=== PATIENT | male | born 1945 | race Caucasian/White ===

== ENCOUNTER 2017-02-12 11:22 | Inpatient (IN) | payer OTHER, MEDICARE ==
[~2017-02-12] VITALS: Ht 182.9 cm; Wt 68.2 kg
[2017-02-12 13:06] LABS: HEMATOCRIT 35.9 % (38.0-50.0); MCH 29.6 PG (29.0-34.0); MCHC 32.9 G/DL (30.0-36.0); MEAN PLAT.VOLUME 10.3 uM^3 (9.0-12.4); PLATELET COUNT 216 K/uL (156-360); RBC DIS.WIDTH-CV 12.7 % (11.8-14.6); RBC DIS.WIDTH-SD 42.3 % (39-53); RED BLOOD COUNT 3.99 M/uL (4.00-5.50); WHITE BLOOD COUNT 7.4 K/uL (4.1-10.2)
[2017-02-12 13:15] LABS: CHLORIDE 105 mEq/L (99-109); POTASSIUM 4.3 mEq/L (3.7-5.4); SODIUM 140 mEq/L (136-147)
[2017-02-12 13:17] LABS: GLUCOSE 113 mg/dL (70-99)
[2017-02-12 13:18] LABS: ANION GAP 15 MEQ/L (2-14)
[2017-02-12 13:21] LABS: GFR ESTIMATE (CALCULATED) 12 mL/min/; UREA NITROGEN (BUN) 60 mg/dL (9-23)
[2017-02-12 13:27] LABS: TROP-I INTERPRETATION NEGATIVE; TROPONIN-I 0.05 ng/mL (0.0-0.30)
[2017-02-12] MEDS ORDERED: CALCITRIOL0.25 MCG PO (14:24)
[2017-02-12] MEDS ORDERED: LABETALOL HCL200 MG PO ×2 (14:25)
[2017-02-12] MEDS ORDERED: SERTRALINE HCL100 MG PO (14:25)
[2017-02-12] MEDS ORDERED: METHYLDOPA250 MG PO (14:25)
[2017-02-12] MEDS ORDERED: NIFEDIPINE ER60 MG PO (14:26)
[2017-02-12] MEDS ORDERED: VITAMIN D32000 UNI1 PO (14:26)
[2017-02-12] MEDS ORDERED: ALLOPURINOL300 MG PO (14:27)
[2017-02-12] MEDS ORDERED: MULTI-VITAMIN1 EAC4 PO (14:27)
[2017-02-12] MEDS ORDERED: TYLENOL REGULA325 MG PO (14:27)
[2017-02-12] MEDS ORDERED: CLARITIN,ALAVAR10 MG PO (14:45)
[2017-02-12 20:05] VITALS: BP 200/94
[2017-02-12 20:25] VITALS: BP 220/94
[2017-02-12 21:26] VITALS: BP 192/78
[2017-02-12 23:16] VITALS: BP 200/92
[2017-02-13] VITALS (9 sets, daily range): BP systolic 174–224; BP diastolic 80–110
[2017-02-13 06:39] LABS: BASOPHIL COUNT 0.1 K/uL (0-0.1); EOSINOPHIL COUNT 0.6 K/uL (0-0.3); HEMATOCRIT 34.1 % (38.0-50.0); IMMATURE GRANULOCYTE (%) 0.2 % (0.0-0.7); INSTRUMENT ABS NEUTROPHIL CT 3.8 K/uL; LYMPHOCYTE COUNT 1.6 K/uL (1.0-2.8); MCH 29.6 PG (29.0-34.0); MCHC 32.6 G/DL (30.0-36.0); MCV 90.9 FL (86-99); MEAN PLAT.VOLUME 10.5 uM^3 (9.0-12.4); MONOCYTE (%) 8.1 % (3-12); MONOCYTE COUNT 0.5 K/uL (0-0.8); NEUTROPHIL (%) 57.6 % (45-76); NEUTROPHIL COUNT 3.8 K/uL (1.8-6.4); PLATELET COUNT 199 K/uL (156-360); RBC DIS.WIDTH-CV 12.7 % (11.8-14.6); RBC DIS.WIDTH-SD 42.4 % (39-53); RED BLOOD COUNT 3.75 M/uL (4.00-5.50); WHITE BLOOD COUNT 6.6 K/uL (4.1-10.2)
[2017-02-13 07:06] LABS: ALKALINE PHOSPHATASE 47 IU/L (3-129); ANION GAP 12 MEQ/L (2-14); CHLORIDE 107 MEQ/L (99-109); DIRECT BILIRUBIN 0.1 mg/dL (0.0-0.3); GFR ESTIMATE (CALCULATED) 13 mL/min/; GLUCOSE 104 mg/dL (70-99); POTASSIUM 3.7 MEQ/L (3.7-5.4); SAMPLE HEMOLYSIS CHECK 0; SAMPLE ICTERIC CHECK 0; SAMPLE LIPEMIA CHECK 0; SODIUM 143 MEQ/L (136-147); TOTAL BILIRUBIN 0.6 MG/DL (0.0-1.0); TROP-I INTERPRETATION NEGATIVE; TROPONIN-I 0.05 ng/mL (0.0-0.30); UREA NITROGEN (BUN) 58 mg/dL (9-23)
[2017-02-13 07:08] LABS: ALKALINE PHOSPHATASE 45 IU/L (3-129); ANION GAP 11 MEQ/L (2-14); CHLORIDE 107 MEQ/L (99-109); GFR ESTIMATE (CALCULATED) 12 mL/min/; GLUCOSE 99 mg/dL (70-99); POTASSIUM 3.7 MEQ/L (3.7-5.4); SAMPLE HEMOLYSIS CHECK 0; SAMPLE ICTERIC CHECK 0; SAMPLE LIPEMIA CHECK 0; SODIUM 142 MEQ/L (136-147); TOTAL BILIRUBIN 0.6 MG/DL (0.0-1.0); UREA NITROGEN (BUN) 56 mg/dL (9-23)
[2017-02-13 07:27] LABS: D-DIMER ELISA 1.58 mg/L FEU (< 0.57)
[2017-02-14 04:44] VITALS: BP 154/72
[2017-02-14 06:58] LABS: EOSINOPHIL (%) 8.1 % (0-5); EOSINOPHIL COUNT 0.6 K/uL (0-0.3); HEMATOCRIT 36.2 % (38.0-50.0); IMMATURE GRANULOCYTE (%) 0.3 % (0.0-0.7); INSTRUMENT ABS NEUTROPHIL CT 4.1 K/uL; LYMPHOCYTE COUNT 1.6 K/uL (1.0-2.8); MCH 29.5 PG (29.0-34.0); MCHC 32.6 G/DL (30.0-36.0); MCV 90.5 FL (86-99); MEAN PLAT.VOLUME 10.6 uM^3 (9.0-12.4); MONOCYTE (%) 7.8 % (3-12); MONOCYTE COUNT 0.5 K/uL (0-0.8); NEUTROPHIL (%) 59.4 % (45-76); NEUTROPHIL COUNT 4.1 K/uL (1.8-6.4); PLATELET COUNT 211 K/uL (156-360); RBC DIS.WIDTH-CV 12.8 % (11.8-14.6); RBC DIS.WIDTH-SD 42.6 % (39-53); WHITE BLOOD COUNT 6.9 K/uL (4.1-10.2)
[2017-02-14 07:25] LABS: ALKALINE PHOSPHATASE 47 IU/L (3-129); ANION GAP 13 MEQ/L (2-14); CHLORIDE 105 MEQ/L (99-109); GFR ESTIMATE (CALCULATED) 11 mL/min/; GLUCOSE 101 mg/dL (70-99); POTASSIUM 3.6 MEQ/L (3.7-5.4); SAMPLE HEMOLYSIS CHECK 0; SAMPLE ICTERIC CHECK 0; SAMPLE LIPEMIA CHECK 0; SODIUM 140 MEQ/L (136-147); TOTAL BILIRUBIN 0.5 MG/DL (0.0-1.0); UREA NITROGEN (BUN) 61 mg/dL (9-23)
[2017-02-14 12:28] VITALS: BP 155/71
[2017-02-14 13:02] LABS: ANTI-HEPATITIS A VIRUS (IGM) Nonreactive; HAV INDEX 0.12
[2017-02-14 13:04] LABS: ANTI-HEPATITIS B CORE (IGM) Nonreactive; HBC IgM INDEX 0.06
[2017-02-14 19:17] VITALS: BP 162/70
[2017-02-14 23:59] VITALS: BP 142/66
[2017-02-15] VITALS (7 sets, daily range): BP systolic 127–178; BP diastolic 60–82
[2017-02-15 05:30] LABS: EOSINOPHIL (%) 9.7 % (0-5); EOSINOPHIL COUNT 0.7 K/uL (0-0.3); HEMATOCRIT 32.4 % (38.0-50.0); IMMATURE GRANULOCYTE (%) 0.3 % (0.0-0.7); LYMPHOCYTE COUNT 1.7 K/uL (1.0-2.8); MCH 29.4 PG (29.0-34.0); MCHC 32.7 G/DL (30.0-36.0); MEAN PLAT.VOLUME 10.2 uM^3 (9.0-12.4); MONOCYTE COUNT 0.6 K/uL (0-0.8); NEUTROPHIL (%) 56.8 % (45-76); PLATELET COUNT 192 K/uL (156-360); RBC DIS.WIDTH-CV 12.9 % (11.8-14.6); RBC DIS.WIDTH-SD 42.6 % (39-53)
[2017-02-15 06:01] LABS: ALKALINE PHOSPHATASE 40 IU/L (3-129); ANION GAP 11 MEQ/L (2-14); CHLORIDE 104 MEQ/L (99-109); GFR ESTIMATE (CALCULATED) 11 mL/min/; GLUCOSE 107 mg/dL (70-99); POTASSIUM 3.5 MEQ/L (3.7-5.4); SAMPLE HEMOLYSIS CHECK 0; SAMPLE ICTERIC CHECK 0; SAMPLE LIPEMIA CHECK 0; SODIUM 135 MEQ/L (136-147); TOTAL BILIRUBIN 0.4 MG/DL (0.0-1.0); UREA NITROGEN (BUN) 64 mg/dL (9-23)
[2017-02-15 13:14] LABS: AHBS INDEX 0.35; HEPATITIS B SURFACE ANTIBODY Nonreactive
[2017-02-16 04:48] VITALS: BP 146/67
[2017-02-16 10:06] LABS: BASOPHIL COUNT 0.1 K/uL (0-0.1); EOSINOPHIL (%) 6.4 % (0-5); EOSINOPHIL COUNT 0.5 K/uL (0-0.3); HEMATOCRIT 31.8 % (38.0-50.0); IMMATURE GRANULOCYTE (%) 0.3 % (0.0-0.7); INSTRUMENT ABS NEUTROPHIL CT 4.6 K/uL; LYMPHOCYTE COUNT 1.5 K/uL (1.0-2.8); MCH 29.4 PG (29.0-34.0); MCHC 32.4 G/DL (30.0-36.0); MCV 90.9 FL (86-99); MEAN PLAT.VOLUME 10.5 uM^3 (9.0-12.4); MONOCYTE (%) 10.7 % (3-12); MONOCYTE COUNT 0.8 K/uL (0-0.8); NEUTROPHIL (%) 61.8 % (45-76); NEUTROPHIL COUNT 4.6 K/uL (1.8-6.4); PLATELET COUNT 185 K/uL (156-360); RBC DIS.WIDTH-CV 13.2 % (11.8-14.6); WHITE BLOOD COUNT 7.4 K/uL (4.1-10.2)
[2017-02-16 10:39] LABS: ANION GAP 14 MEQ/L (2-14); CHLORIDE 101 MEQ/L (99-109); GFR ESTIMATE (CALCULATED) 12 mL/min/; GLUCOSE 106 mg/dL (70-99); POTASSIUM 3.5 MEQ/L (3.7-5.4); SAMPLE HEMOLYSIS CHECK 0; SAMPLE ICTERIC CHECK 0; SAMPLE LIPEMIA CHECK 0; SODIUM 138 MEQ/L (136-147); UREA NITROGEN (BUN) 45 mg/dL (9-23)
[2017-02-16 15:40] VITALS: BP 164/72
[2017-02-16 20:45] VITALS: BP 179/74
[2017-02-16 23:22] VITALS: BP 119/58
[2017-02-17 04:38] VITALS: BP 115/58
[2017-02-17 07:44] VITALS: BP 129/59
[2017-02-17 11:00] VITALS: BP 128/62
[2017-02-17 14:13] LABS: Metanephrine,Plasma 38 pg/mL (<=57)
[2017-02-17 16:54] VITALS: BP 133/58
[2017-02-17 20:08] VITALS: BP 146/65
[2017-02-17 22:02] VITALS: BP 161/73
[2017-02-18 00:29] VITALS: BP 133/61
[2017-02-18 03:56] VITALS: BP 135/62
[2017-02-18 08:56] LABS: HEMATOCRIT 31.8 % (38.0-50.0); MCH 29.5 PG (29.0-34.0); MCHC 32.4 G/DL (30.0-36.0); MCV 91.1 FL (86-99); MEAN PLAT.VOLUME 10.8 uM^3 (9.0-12.4); PLATELET COUNT 189 K/uL (156-360); RBC DIS.WIDTH-CV 12.8 % (11.8-14.6); RBC DIS.WIDTH-SD 42.7 % (39-53); RED BLOOD COUNT 3.49 M/uL (4.00-5.50); WHITE BLOOD COUNT 7.4 K/uL (4.1-10.2)
[2017-02-18 09:14] LABS: ALKALINE PHOSPHATASE 42 IU/L (3-129); ANION GAP 15 MEQ/L (2-14); CHLORIDE 97 MEQ/L (99-109); GFR ESTIMATE (CALCULATED) 9 mL/min/; GLUCOSE 116 mg/dL (70-99); SAMPLE HEMOLYSIS CHECK 0; SAMPLE ICTERIC CHECK 0; SAMPLE LIPEMIA CHECK 0; SODIUM 135 MEQ/L (136-147); TOTAL BILIRUBIN 0.5 MG/DL (0.0-1.0); UREA NITROGEN (BUN) 61 mg/dL (9-23)
[2017-02-18 12:05] VITALS: BP 156/66
[2017-02-18 16:34] VITALS: BP 127/60
[2017-02-18 19:24] VITALS: BP 155/70
[2017-02-19 00:22] VITALS: BP 110/55
[2017-02-19 04:38] VITALS: BP 145/67
[2017-02-19 06:28] LABS: BASOPHIL COUNT 0.1 K/uL (0-0.1); EOSINOPHIL (%) 9.6 % (0-5); EOSINOPHIL COUNT 0.7 K/uL (0-0.3); HEMATOCRIT 35.5 % (38.0-50.0); IMMATURE GRANULOCYTE (%) 0.4 % (0.0-0.7); INSTRUMENT ABS NEUTROPHIL CT 4.1 K/uL; LYMPHOCYTE COUNT 1.7 K/uL (1.0-2.8); MCH 29.4 PG (29.0-34.0); MCHC 32.7 G/DL (30.0-36.0); MCV 90.1 FL (86-99); MONOCYTE (%) 14.1 % (3-12); MONOCYTE COUNT 1.1 K/uL (0-0.8); NEUTROPHIL (%) 53.2 % (45-76); NEUTROPHIL COUNT 4.1 K/uL (1.8-6.4); PLATELET COUNT 224 K/uL (156-360); RBC DIS.WIDTH-CV 12.4 % (11.8-14.6); RBC DIS.WIDTH-SD 41.4 % (39-53); RED BLOOD COUNT 3.94 M/uL (4.00-5.50); WHITE BLOOD COUNT 7.7 K/uL (4.1-10.2)
[2017-02-19 06:49] LABS: ALKALINE PHOSPHATASE 47 IU/L (3-129); ANION GAP 15 MEQ/L (2-14); CHLORIDE 95 MEQ/L (99-109); GFR ESTIMATE (CALCULATED) 11 mL/min/; GLUCOSE 93 mg/dL (70-99); POTASSIUM 4.5 MEQ/L (3.7-5.4); SAMPLE HEMOLYSIS CHECK 0; SAMPLE ICTERIC CHECK 0; SAMPLE LIPEMIA CHECK 0; SODIUM 135 MEQ/L (136-147); TOTAL BILIRUBIN 0.6 MG/DL (0.0-1.0); UREA NITROGEN (BUN) 43 mg/dL (9-23)
[2017-02-19 08:13] VITALS: BP 142/65
[2017-02-19 12:30] VITALS: BP 140/63
[2017-02-19 20:00] VITALS: BP 129/62
[2017-02-20 00:42] VITALS: BP 115/58
[2017-02-20 04:28] VITALS: BP 113/56
[2017-02-20 06:25] VITALS: BP 128/61
[2017-02-20 08:37] LABS: BASOPHIL COUNT 0.1 K/uL (0-0.1); EOSINOPHIL (%) 8.6 % (0-5); EOSINOPHIL COUNT 0.6 K/uL (0-0.3); IMMATURE GRANULOCYTE (%) 0.5 % (0.0-0.7); INSTRUMENT ABS NEUTROPHIL CT 4.2 K/uL; LYMPHOCYTE COUNT 1.6 K/uL (1.0-2.8); MCH 30.1 PG (29.0-34.0); MCHC 33.3 G/DL (30.0-36.0); MCV 90.2 FL (86-99); MEAN PLAT.VOLUME 10.6 uM^3 (9.0-12.4); MONOCYTE COUNT 0.9 K/uL (0-0.8); NEUTROPHIL (%) 56.4 % (45-76); NEUTROPHIL COUNT 4.2 K/uL (1.8-6.4); PLATELET COUNT 233 K/uL (156-360); RBC DIS.WIDTH-CV 12.3 % (11.8-14.6); RBC DIS.WIDTH-SD 40.8 % (39-53); RED BLOOD COUNT 3.66 M/uL (4.00-5.50); WHITE BLOOD COUNT 7.4 K/uL (4.1-10.2)
[2017-02-20 08:39] LABS: ANION GAP 17 MEQ/L (2-14); CHLORIDE 93 MEQ/L (99-109); SAMPLE HEMOLYSIS CHECK 0; SAMPLE ICTERIC CHECK 0; SAMPLE LIPEMIA CHECK 0; SODIUM 133 MEQ/L (136-147)
[2017-02-20 08:47] LABS: GFR ESTIMATE (CALCULATED) 8 mL/min/; GLUCOSE 133 mg/dL (70-99); UREA NITROGEN (BUN) 66 mg/dL (9-23)
[2017-02-20 11:42] VITALS: BP 134/61
[2017-02-20] MEDS ORDERED: CLONIDINE HCL0.1 MG PO (13:03)
[2017-02-20] MEDS ORDERED: HEPARIN SO1000 UNIT1 INTRA-CATH (13:03)
[2017-02-20] MEDS ORDERED: BYSTOLIC10 MG PO (13:04)
[2017-02-20] MEDS ORDERED: Procardia XL,Adalat PO (13:04)
[2017-02-20] MEDS ORDERED: ASPIRIN EC325 MG PO (13:04)
== END 2017-02-20 17:12 | DRG 683 ==
LOC: EME 11:22 → 4EAST 14:38 → 3EAST 14:38 → EDOF 14:38 → 4EAST 20:03 → 3EAST 02-15 16:19
PROVIDERS: Emergency Medicine; Internal Medicine; Internal Medicine Nephrology
PROC: 02HV33Z Insertion of Infusion Device into Superior Vena Cava, Percutaneous Approach (ICD-10-PCS; principal; 2017-02-15)
DX: N17.9 Acute kidney failure, unspecified (principal); E11.22 Type 2 diabetes mellitus with diabetic chronic kidney disease; I12.0 Hypertensive chronic kidney disease with stage 5 chronic kidney disease or end stage renal disease; R55 Syncope and collapse; E86.0 Dehydration; R94.31 Abnormal electrocardiogram [ECG] [EKG]; R06.02 Shortness of breath; E78.5 Hyperlipidemia, unspecified; R42 Dizziness and giddiness; F17.210 Nicotine dependence, cigarettes, uncomplicated; N18.4 Chronic kidney disease, stage 4 (severe); R00.1 Bradycardia, unspecified; N18.5 Chronic kidney disease, stage 5; I25.2 Old myocardial infarction; Z88.8 Allergy status to other drugs, medicaments and biological substances; I70.1 Atherosclerosis of renal artery
CPT/HCPCS: 36415; 70450; 71020; 76770; 78582; 80048; 80053; 80061; 80069; 80074; 80076; 81003; 82088 90; 82272; 83036; 83735; 83835 90; 84100; 84244 90; 84484; 84550; 85025; 85027; 85379; 86706; 93005; 93306; 93975; 99281; 99285; A9540; A9567; C1750; C1894; J0360; J0690; J1644; J2250; J2597; J3010; J7030; J7050; S0020

== ENCOUNTER 2017-04-05 05:30 | Day surgery (SDC) | payer OTHER, MEDICARE ==
[~2017-04-05] VITALS: Ht 182.9 cm; Wt 68.0 kg
[~2017-04-05 05:30] MED LIST: ALLOPURINOL300 MG PO; ASPIRIN EC325 MG PO; BUSPAR10 MG PO; BYSTOLIC10 MG PO; CALCITRIOL0.25 MCG PO; CLARITIN,ALAVAR10 MG PO; CLONIDINE HCL0.1 MG PO; FERRIC CITRATE210 MG PO; HEPARIN SO1000 UNIT1 INTRA-CATH; LABETALOL HCL200 MG PO; METHYLDOPA250 MG PO; MULTI-VITAMIN1 EAC4 PO; NIFEDIPINE ER60 MG PO; PLAVIX75 MG PO; Procardia XL,Adalat PO; SERTRALINE HCL100 MG PO; TYLENOL REGULA325 MG PO; VITAMIN D32000 UNI1 PO; ZYLOPRIM300 MG PO
[2017-04-05 06:04] VITALS: BP 147/72
[2017-04-05 06:09] LABS: HEMATOCRIT 31.9 % (38.0-50.0); MCHC 33.2 G/DL (30.0-36.0); MCV 93.3 FL (86-99); MEAN PLAT.VOLUME 9.4 uM^3 (9.0-12.4); PLATELET COUNT 301 K/uL (156-360); RBC DIS.WIDTH-CV 14.4 % (11.8-14.6); RBC DIS.WIDTH-SD 47.1 % (39-53); RED BLOOD COUNT 3.42 M/uL (4.00-5.50); WHITE BLOOD COUNT 10.6 K/uL (4.1-10.2)
[2017-04-05 07:03] LABS: METH RESISTANT S AUREUS PCR NEGATIVE (NEGATIVE)
[2017-04-05 07:04] LABS: ANION GAP 10 MEQ/L (2-14); CHLORIDE 90 MEQ/L (99-109); POTASSIUM 4.3 MEQ/L (3.7-5.4); SAMPLE HEMOLYSIS CHECK 1; SAMPLE ICTERIC CHECK 0; SAMPLE LIPEMIA CHECK 0; SODIUM 138 MEQ/L (136-147)
[2017-04-05 07:07] LABS: PROBE CHECK PASS; SPECIMEN PROCESSING CONTROL PASS
[2017-04-05 07:09] LABS: GFR ESTIMATE (CALCULATED) 11 mL/min/; GLUCOSE 96 mg/dL (70-99); UREA NITROGEN (BUN) 25 mg/dL (9-23)
[2017-04-05 09:04] VITALS: BP 146/62
[2017-04-05 09:38] VITALS: BP 137/76
== END 2017-04-05 09:45 | disposition home or self-care (01) ==
LOC: SDC 05:30
PROVIDERS: Surgery
PROC: 0WHG03Z Insertion of Infusion Device into Peritoneal Cavity, Open Approach (ICD-10-PCS; principal; 2017-04-05)
DX: I12.0 Hypertensive chronic kidney disease with stage 5 chronic kidney disease or end stage renal disease (principal); E11.22 Type 2 diabetes mellitus with diabetic chronic kidney disease; N18.6 End stage renal disease; Z99.2 Dependence on renal dialysis; J44.9 Chronic obstructive pulmonary disease, unspecified; E78.00 Pure hypercholesterolemia, unspecified; Z87.891 Personal history of nicotine dependence; Z79.82 Long term (current) use of aspirin; Z79.02 Long term (current) use of antithrombotics/antiplatelets
CPT/HCPCS: 80048; 85027; 87641; C1750; J0330; J0690; J2250; J2405; J3010

== ENCOUNTER 2017-04-29 13:37 | Day surgery (SDC) | payer OTHER, MEDICARE ==
[~2017-04-29] VITALS: Ht 182.9 cm; Wt 68.0 kg
[~2017-04-29 13:37] MED LIST changes: +HYDROCODON-ACE1 EAC7 PO; +RENA-VITE RX T1 EACH PO
[2017-04-29 14:13] VITALS: BP 179/81
[2017-04-29 14:21] LABS: HEMATOCRIT 29.3 % (38.0-50.0); MCV 93.6 FL (86-99)
[2017-04-29 14:40] LABS: ANION GAP 19 MEQ/L (2-14); CHLORIDE 94 MEQ/L (99-109); POTASSIUM 4.3 MEQ/L (3.7-5.4); SAMPLE HEMOLYSIS CHECK 0; SAMPLE ICTERIC CHECK 0; SAMPLE LIPEMIA CHECK 0; SODIUM 137 MEQ/L (136-147)
[2017-04-29 14:46] LABS: GFR ESTIMATE (CALCULATED) 8 mL/min/; GLUCOSE 87 mg/dL (70-99); UREA NITROGEN (BUN) 42 mg/dL (9-23)
[2017-04-29 15:26] LABS: METH RESISTANT S AUREUS PCR NEGATIVE (NEGATIVE)
[2017-04-29 15:29] LABS: PROBE CHECK PASS; SPECIMEN PROCESSING CONTROL PASS
[2017-04-29 17:40] VITALS: BP 177/79
== END 2017-04-29 18:10 | disposition home or self-care (01) ==
LOC: SDC 13:37
PROVIDERS: Surgery
PROC: 0WHG4YZ Insertion of Other Device into Peritoneal Cavity, Percutaneous Endoscopic Approach (ICD-10-PCS; principal; 2017-04-29)
DX: T85.611A Breakdown (mechanical) of intraperitoneal dialysis catheter, initial encounter (principal); I12.9 Hypertensive chronic kidney disease with stage 1 through stage 4 chronic kidney disease, or unspecified chronic kidney disease; E11.22 Type 2 diabetes mellitus with diabetic chronic kidney disease; N18.9 Chronic kidney disease, unspecified; J44.9 Chronic obstructive pulmonary disease, unspecified; E78.5 Hyperlipidemia, unspecified; Z79.01 Long term (current) use of anticoagulants; Z87.891 Personal history of nicotine dependence; Z88.8 Allergy status to other drugs, medicaments and biological substances
CPT/HCPCS: 80048; 85014; 85018; 87641; J0131; J2250; J3010

== ENCOUNTER 2017-05-21 05:10 | Inpatient (IN) | payer OTHER, MEDICARE ==
[~2017-05-21] VITALS: Ht 182.9 cm; Wt 87.1 kg
[~2017-05-21 05:10] MED LIST changes: +DIALYVITE 3,001 EACH PO; -RENA-VITE RX T1 EACH PO
[2017-05-21 05:49] LABS: HEMATOCRIT 27.8 % (38.0-50.0); MCH 30.8 PG (29.0-34.0); MCHC 33.5 G/DL (30.0-36.0); MCV 92.1 FL (86-99); MEAN PLAT.VOLUME 10.2 uM^3 (9.0-12.4); NRBC (%) 0.1 /100 WBC (0-0); PLATELET COUNT 410 K/uL (156-360); RBC DIS.WIDTH-CV 15.4 % (11.8-14.6); RBC DIS.WIDTH-SD 51.1 % (39-53); RED BLOOD COUNT 3.02 M/uL (4.00-5.50); WHITE BLOOD COUNT 14.3 K/uL (4.1-10.2)
[2017-05-21 06:00] LABS: CHLORIDE 99 mEq/L (99-109); POTASSIUM 4.8 mEq/L (3.7-5.4); SODIUM 142 mEq/L (136-147)
[2017-05-21 06:02] LABS: GLUCOSE 117 mg/dL (70-99)
[2017-05-21 06:03] LABS: CARBON DIOXIDE (BICARBONATE) 21.8 MEQ/L (20-31)
[2017-05-21 06:04] LABS: ANION GAP 23 MEQ/L (2-14); TOTAL BILIRUBIN 0.4 mg/dL (0.0-1.0)
[2017-05-21 06:06] LABS: ALKALINE PHOSPHATASE 84 IU/L (3-129); GFR ESTIMATE (CALCULATED) 3 mL/min/
[2017-05-21 06:07] LABS: UREA NITROGEN (BUN) 95 mg/dL (9-23)
[2017-05-21 06:09] LABS: LIPASE 24 U/L (1.0-51.0)
[2017-05-21] MEDS ORDERED: ASPIRIN EC325 MG PO (10:32)
[2017-05-21] MEDS ORDERED: FERRIC CITRATE210 MG PO (10:33)
[2017-05-21] MEDS ORDERED: CLONIDINE HCL0.1 MG PO ×2 (10:34→10:35)
[2017-05-21] MEDS ORDERED: GENTAMICIN SULF30 GM TP (10:36)
[2017-05-21] MEDS ORDERED: GABAPENTIN100 MG PO (10:39)
[2017-05-21 19:04] VITALS: BP 169/81
[2017-05-22] VITALS (7 sets, daily range): BP systolic 135–204; BP diastolic 74–96
[2017-05-22 08:52] LABS: EOSINOPHIL (%) 0 % (0-5); HEMATOCRIT 27.8 % (38.0-50.0); IMMATURE GRANULOCYTE (%) 0.8 % (0.0-0.7); IMMATURE GRANULOCYTE COUNT 0.1 K/uL; INSTRUMENT ABS NEUTROPHIL CT 10.5 K/uL; LYMPHOCYTE COUNT 0.9 K/uL (1.0-2.8); MCH 31.8 PG (29.0-34.0); MCHC 33.8 G/DL (30.0-36.0); MCV 93.9 FL (86-99); MEAN PLAT.VOLUME 10.7 uM^3 (9.0-12.4); MONOCYTE (%) 1.8 % (3-12); MONOCYTE COUNT 0.2 K/uL (0-0.8); NEUTROPHIL (%) 89.8 % (45-76); NEUTROPHIL COUNT 10.5 K/uL (1.8-6.4); NRBC (%) 0.2 /100 WBC (0-0); PLATELET COUNT 425 K/uL (156-360); RBC DIS.WIDTH-CV 15.8 % (11.8-14.6); RED BLOOD COUNT 2.96 M/uL (4.00-5.50); WHITE BLOOD COUNT 11.7 K/uL (4.1-10.2)
[2017-05-22 09:11] LABS: ANION GAP 17 MEQ/L (2-14); CHLORIDE 102 MEQ/L (99-109); POTASSIUM 4.4 MEQ/L (3.7-5.4); SAMPLE HEMOLYSIS CHECK 0; SAMPLE ICTERIC CHECK 0; SAMPLE LIPEMIA CHECK 0; SODIUM 144 MEQ/L (136-147)
[2017-05-22 09:17] LABS: GFR ESTIMATE (CALCULATED) 7 mL/min/; UREA NITROGEN (BUN) 52 mg/dL (9-23)
[2017-05-22 09:22] LABS: GLUCOSE 195 mg/dL (70-99)
[2017-05-22 11:11] LABS: TOBRAMYCIN (TROUGH) 2.3 MCG/ML (0-1.0); VANCOMYCIN, TROUGH 7.1 MCG/ML (10-20)
[2017-05-22 13:03] LABS: TROP-I INTERPRETATION INDETERMINATE; TROPONIN-I 0.44 ng/mL (0.0-0.30)
[2017-05-22 23:36] LABS: TROP-I INTERPRETATION INDETERMINATE; TROPONIN-I 0.41 ng/mL (0.0-0.30)
[2017-05-23] VITALS (9 sets, daily range): BP systolic 147–202; BP diastolic 71–98
[2017-05-23 04:53] LABS: TROP-I INTERPRETATION INDETERMINATE; TROPONIN-I 0.33 ng/mL (0.0-0.30)
[2017-05-23 05:05] LABS: HEMATOCRIT 30.2 % (38.0-50.0); MCH 29.9 PG (29.0-34.0); MCHC 31.8 G/DL (30.0-36.0); MCV 94.1 FL (86-99); MEAN PLAT.VOLUME 10.3 uM^3 (9.0-12.4); NRBC (%) 0.4 /100 WBC (0-0); PLATELET COUNT 421 K/uL (156-360); RBC DIS.WIDTH-SD 53.7 % (39-53); RED BLOOD COUNT 3.21 M/uL (4.00-5.50); WHITE BLOOD COUNT 13.8 K/uL (4.1-10.2)
[2017-05-23 06:06] LABS: ALKALINE PHOSPHATASE 64 IU/L (3-129); ANION GAP 15 MEQ/L (2-14); CHLORIDE 102 MEQ/L (99-109); GLUCOSE 132 mg/dL (70-99); POTASSIUM 4.8 MEQ/L (3.7-5.4); SAMPLE HEMOLYSIS CHECK 0; SAMPLE ICTERIC CHECK 0; SAMPLE LIPEMIA CHECK 0; SODIUM 141 MEQ/L (136-147); TOBRAMYCIN (TROUGH) 1.8 MCG/ML (0-1.0); TOTAL BILIRUBIN 0.4 MG/DL (0.0-1.0); UREA NITROGEN (BUN) 38 mg/dL (9-23)
[2017-05-23 06:12] LABS: GFR ESTIMATE (CALCULATED) 11 mL/min/
[2017-05-23 08:11] LABS: METH RESISTANT S AUREUS PCR NEGATIVE (NEGATIVE); PROBE CHECK PASS; SPECIMEN PROCESSING CONTROL PASS
[2017-05-24] VITALS (7 sets, daily range): BP systolic 139–170; BP diastolic 65–91
[2017-05-24 06:06] LABS: VANCOMYCIN, TROUGH 14.1 MCG/ML (10-20)
[2017-05-24 06:07] LABS: TOBRAMYCIN (TROUGH) 0.7 MCG/ML (0-1.0)
[2017-05-24 07:11] LABS: EOSINOPHIL (%) 0.1 % (0-5); HEMATOCRIT 30.7 % (38.0-50.0); IMMATURE GRANULOCYTE (%) 0.6 % (0.0-0.7); IMMATURE GRANULOCYTE COUNT 0.1 K/uL; INSTRUMENT ABS NEUTROPHIL CT 9.2 K/uL; LYMPHOCYTE COUNT 2.5 K/uL (1.0-2.8); MCH 31.5 PG (29.0-34.0); MCHC 33.6 G/DL (30.0-36.0); MCV 93.9 FL (86-99); MONOCYTE (%) 7.4 % (3-12); MONOCYTE COUNT 0.9 K/uL (0-0.8); NEUTROPHIL (%) 72.5 % (45-76); NEUTROPHIL COUNT 9.2 K/uL (1.8-6.4); NRBC (%) 0.7 /100 WBC (0-0); PLATELET COUNT 402 K/uL (156-360); RBC DIS.WIDTH-SD 53.7 % (39-53); RED BLOOD COUNT 3.27 M/uL (4.00-5.50); WHITE BLOOD COUNT 12.7 K/uL (4.1-10.2)
[2017-05-25 03:10] VITALS: BP 160/84
[2017-05-25 07:30] VITALS: BP 144/72
[2017-05-25 07:44] VITALS: BP 135/64
[2017-05-25] MEDS ORDERED: CEFTIN500 MG PO (08:56)
[2017-05-25] MEDS ORDERED: CLONIDINE HCL0.2 MG PO (08:57)
[2017-05-25] MEDS ORDERED: DUONEB 2.5-0.5 M3 ML AEROSOL (08:57)
[2017-05-25] MEDS ORDERED: LOSARTAN POTAS100 MG PO (08:58)
[2017-05-25] MEDS ORDERED: PREDNISONE20 MG PO (08:59)
[2017-05-25] MEDS ORDERED: APRESOLINE10 MG PO (09:00)
[2017-05-25 10:41] LABS: EOSINOPHIL (%) 1.2 % (0-5); EOSINOPHIL COUNT 0.2 K/uL (0-0.3); HEMATOCRIT 28.9 % (38.0-50.0); IMMATURE GRANULOCYTE (%) 0.7 % (0.0-0.7); IMMATURE GRANULOCYTE COUNT 0.1 K/uL; INSTRUMENT ABS NEUTROPHIL CT 10.8 K/uL; LYMPHOCYTE COUNT 2.5 K/uL (1.0-2.8); MCH 30.6 PG (29.0-34.0); MCHC 32.9 G/DL (30.0-36.0); MCV 93.2 FL (86-99); MEAN PLAT.VOLUME 10.1 uM^3 (9.0-12.4); MONOCYTE (%) 5.6 % (3-12); MONOCYTE COUNT 0.8 K/uL (0-0.8); NEUTROPHIL (%) 75.1 % (45-76); NEUTROPHIL COUNT 10.8 K/uL (1.8-6.4); NRBC (%) 0.3 /100 WBC (0-0); PLATELET COUNT 340 K/uL (156-360); RBC DIS.WIDTH-CV 15.9 % (11.8-14.6); RBC DIS.WIDTH-SD 52.8 % (39-53); WHITE BLOOD COUNT 14.3 K/uL (4.1-10.2)
[2017-05-25 11:04] LABS: ANION GAP 14 MEQ/L (2-14); CHLORIDE 93 MEQ/L (99-109); GFR ESTIMATE (CALCULATED) 9 mL/min/; GLUCOSE 99 mg/dL (70-99); POTASSIUM 3.9 MEQ/L (3.7-5.4); SAMPLE HEMOLYSIS CHECK 0; SAMPLE ICTERIC CHECK 0; SAMPLE LIPEMIA CHECK 0; SODIUM 137 MEQ/L (136-147); UREA NITROGEN (BUN) 56 mg/dL (9-23)
[2017-05-25 17:23] VITALS: BP 123/64
== END 2017-05-25 18:35 | DRG 190 ==
LOC: EME 05:10 → EDOF 08:27 → 4EAST 08:27 → ENRESERV 08:36 → EDOF 15:55 → ENRESERV 16:08 → 2SOUTH 16:11 → 4EAST 18:34
PROVIDERS: Emergency Medicine; Internal Medicine; Internal Medicine Nephrology
PROC: 5A1D60Z (ICD-10-PCS; principal; 2017-05-21)
DX: J44.0 Chronic obstructive pulmonary disease with (acute) lower respiratory infection (principal); J18.9 Pneumonia, unspecified organism; Y95 Nosocomial condition; J96.01 Acute respiratory failure with hypoxia; N17.9 Acute kidney failure, unspecified; I96 Gangrene, not elsewhere classified; J44.1 Chronic obstructive pulmonary disease with (acute) exacerbation; I73.1 Thromboangiitis obliterans [Buerger's disease]; I75.023 Atheroembolism of bilateral lower extremities; L97.529 Non-pressure chronic ulcer of other part of left foot with unspecified severity; L97.519 Non-pressure chronic ulcer of other part of right foot with unspecified severity; I15.9 Secondary hypertension, unspecified; N18.6 End stage renal disease; Z99.2 Dependence on renal dialysis; Z91.19 Patient's noncompliance with other medical treatment and regimen; I48.0 Paroxysmal atrial fibrillation; I70.1 Atherosclerosis of renal artery; D64.9 Anemia, unspecified; F03.90 Unspecified dementia, unspecified severity, without behavioral disturbance, psychotic disturbance, mood disturbance, and anxiety; F17.210 Nicotine dependence, cigarettes, uncomplicated; F32.9 Major depressive disorder, single episode, unspecified; R10.9 Unspecified abdominal pain; R60.0 Localized edema
CPT/HCPCS: 71010; 71020; 71275; 74174; 80048; 80053; 80069; 80200; 80202; 82803; 83605; 83690; 83880; 84100; 84484; 85025; 85027; 87040; 87070; 87205; 87449; 87641; 93005; 93925; 94640; 94640 76; 94799; 99202; 99281; 99285; J0360; J0692; J1644; J1940; J1956; J2543; J2930; J2997; J3260; J3370; J7030; J7050; J7512

== ENCOUNTER → 2017-06-21 | Outpatient (CLI) | payer OTHER, MEDICARE ==
[~2017-06-21] MED LIST changes: +APRESOLINE10 MG PO; +CEFTIN500 MG PO; +CLONIDINE HCL0.2 MG PO; +DUONEB 2.5-0.5 M3 ML AEROSOL; +GABAPENTIN100 MG PO; +GENTAMICIN SULF30 GM TP; +LOSARTAN POTAS100 MG PO; +PREDNISONE20 MG PO
== END | disposition home or self-care (01) ==
LOC: AMB 12:24
PROC: 02PYX3Z Removal of Infusion Device from Great Vessel, External Approach (ICD-10-PCS; principal; 2017-06-21)
DX: Z45.2 Encounter for adjustment and management of vascular access device (principal); N18.6 End stage renal disease

== ENCOUNTER 2017-08-14 11:45 | Inpatient (IN) | payer OTHER, MEDICARE ==
[~2017-08-14] VITALS: Ht 182.9 cm; Wt 61.4 kg
[~2017-08-14 11:45] MED LIST changes: +NIFEDIPINE ER30 MG PO; -NIFEDIPINE ER60 MG PO
[2017-08-14 12:43] LABS: HEMATOCRIT 30.3 % (38.0-50.0); MCH 31.4 PG (29.0-34.0); MCV 95.3 FL (86-99); PLATELET COUNT 474 K/uL (156-360); RBC DIS.WIDTH-CV 14.6 % (11.8-14.6); RBC DIS.WIDTH-SD 50.9 % (39-53); RED BLOOD COUNT 3.18 M/uL (4.00-5.50); WHITE BLOOD COUNT 14.1 K/uL (4.1-10.2)
[2017-08-14 12:51] LABS: CHLORIDE 100 mEq/L (99-109); POTASSIUM 3.3 mEq/L (3.7-5.4); SODIUM 144 mEq/L (136-147)
[2017-08-14 12:52] LABS: MAGNESIUM 1.4 mg/dL (1.3-2.7)
[2017-08-14 12:53] LABS: GLUCOSE 116 mg/dL (70-99)
[2017-08-14 12:55] LABS: ANION GAP 19 MEQ/L (2-14)
[2017-08-14 12:57] LABS: GFR ESTIMATE (CALCULATED) 5 mL/min/
[2017-08-14 12:58] LABS: UREA NITROGEN (BUN) 71 mg/dL (9-23)
[2017-08-14 13:03] LABS: TROP-I INTERPRETATION NEGATIVE
[2017-08-14] MEDS ORDERED: BYSTOLIC10 MG PO (16:22)
[2017-08-14] MEDS ORDERED: COZAAR100 MG PO (16:23)
[2017-08-14] MEDS ORDERED: VITAMIN D32000 UNI1 PO (16:26)
[2017-08-14] MEDS ORDERED: VIIBRYD10 MG PO (16:26)
[2017-08-14 20:08] LABS: TROP-I INTERPRETATION NEGATIVE; TROPONIN-I 0.12 ng/mL (0.0-0.30)
[2017-08-14 21:51] LABS: BODY FLUID EOSINOPHILS 1 % (0-25); BODY FLUID RBC'S < 1000 /MM^3 (0-100); BODY FLUID WBC'S 59 /MM^3 (0-500); MONONUCLEAR WBC'S 67 %; POLYNUCLEAR WBC'S 32 % (0-25); TYPE OF FLUID PERITONEAL
[2017-08-15 00:41] VITALS: BP 150/80
[2017-08-15 02:10] LABS: TROP-I INTERPRETATION NEGATIVE; TROPONIN-I 0.11 ng/mL (0.0-0.30)
[2017-08-15 04:07] VITALS: BP 151/68
[2017-08-15 06:00] LABS: HEMATOCRIT 30.4 % (38.0-50.0); MCH 30.9 PG (29.0-34.0); MCHC 31.9 G/DL (30.0-36.0); MCV 96.8 FL (86-99); PLATELET COUNT 476 K/uL (156-360); RBC DIS.WIDTH-CV 14.7 % (11.8-14.6); RBC DIS.WIDTH-SD 51.4 % (39-53); RED BLOOD COUNT 3.14 M/uL (4.00-5.50)
[2017-08-15 07:26] LABS: ALKALINE PHOSPHATASE 69 IU/L (3-129); ANION GAP 20 MEQ/L (2-14); CHLORIDE 100 MEQ/L (99-109); GFR ESTIMATE (CALCULATED) 5 mL/min/; GLUCOSE 105 mg/dL (70-99); POTASSIUM 3.3 MEQ/L (3.7-5.4); SAMPLE HEMOLYSIS CHECK 0; SAMPLE ICTERIC CHECK 0; SAMPLE LIPEMIA CHECK 0; SODIUM 147 MEQ/L (136-147); TOTAL BILIRUBIN 0.4 MG/DL (0.0-1.0); UREA NITROGEN (BUN) 67 mg/dL (9-23)
[2017-08-15 08:01] VITALS: BP 128/68
[2017-08-15 09:01] LABS: TYPE OF FLUID PERITONEAL
[2017-08-15 10:15] LABS: BODY FLUID RBC'S < 1000 /MM^3 (0-100); BODY FLUID WBC'S 15 /MM^3 (0-500)
[2017-08-15 10:21] LABS: BODY FLUID EOSINOPHILS 0 % (0-25); MONONUCLEAR WBC'S 50 %; POLYNUCLEAR WBC'S 50 % (0-25)
[2017-08-15 19:44] VITALS: BP 118/60
[2017-08-16] VITALS (7 sets, daily range): BP systolic 103–134; BP diastolic 40–78
[2017-08-16 06:25] LABS: EOSINOPHIL (%) 1.2 % (0-5); EOSINOPHIL COUNT 0.1 K/uL (0-0.3); HEMATOCRIT 28.9 % (38.0-50.0); IMMATURE GRANULOCYTE (%) 0.9 % (0.0-0.7); IMMATURE GRANULOCYTE COUNT 0.1 K/uL; INSTRUMENT ABS NEUTROPHIL CT 8.6 K/uL; MCHC 32.2 G/DL (30.0-36.0); MCV 96.3 FL (86-99); MEAN PLAT.VOLUME 10.9 uM^3 (9.0-12.4); MONOCYTE (%) 7.6 % (3-12); MONOCYTE COUNT 0.9 K/uL (0-0.8); NEUTROPHIL COUNT 8.6 K/uL (1.8-6.4); PLATELET COUNT 460 K/uL (156-360); RBC DIS.WIDTH-CV 14.8 % (11.8-14.6); RBC DIS.WIDTH-SD 51.6 % (39-53); WHITE BLOOD COUNT 11.7 K/uL (4.1-10.2)
[2017-08-16 06:57] LABS: ANION GAP 15 MEQ/L (2-14); CHLORIDE 100 MEQ/L (99-109); GFR ESTIMATE (CALCULATED) 6 mL/min/; GLUCOSE 91 mg/dL (70-99); POTASSIUM 2.9 MEQ/L (3.7-5.4); SAMPLE HEMOLYSIS CHECK 0; SAMPLE ICTERIC CHECK 0; SAMPLE LIPEMIA CHECK 0; SODIUM 144 MEQ/L (136-147); UREA NITROGEN (BUN) 58 mg/dL (9-23)
[2017-08-16 17:11] LABS: ANION GAP 14 MEQ/L (2-14); CHLORIDE 100 MEQ/L (99-109); POTASSIUM 3.4 MEQ/L (3.7-5.4); SAMPLE HEMOLYSIS CHECK 0; SAMPLE ICTERIC CHECK 0; SAMPLE LIPEMIA CHECK 0; SODIUM 142 MEQ/L (136-147)
[2017-08-16 17:17] LABS: GFR ESTIMATE (CALCULATED) 6 mL/min/; GLUCOSE 96 mg/dL (70-99); UREA NITROGEN (BUN) 59 mg/dL (9-23)
[2017-08-17 00:07] VITALS: BP 121/65
[2017-08-17 05:53] VITALS: BP 135/72
[2017-08-17 06:17] LABS: HEMATOCRIT 29.7 % (38.0-50.0); MCH 31.4 PG (29.0-34.0); MEAN PLAT.VOLUME 11.2 uM^3 (9.0-12.4); PLATELET COUNT 454 K/uL (156-360); RBC DIS.WIDTH-CV 15.2 % (11.8-14.6); RBC DIS.WIDTH-SD 54.2 % (39-53); RED BLOOD COUNT 3.03 M/uL (4.00-5.50); WHITE BLOOD COUNT 11.7 K/uL (4.1-10.2)
[2017-08-17 06:42] LABS: ALKALINE PHOSPHATASE 63 IU/L (3-129); ANION GAP 14 MEQ/L (2-14); CHLORIDE 103 MEQ/L (99-109); GFR ESTIMATE (CALCULATED) 6 mL/min/; GLUCOSE 81 mg/dL (70-99); POTASSIUM 3.8 MEQ/L (3.7-5.4); SAMPLE HEMOLYSIS CHECK 0; SAMPLE ICTERIC CHECK 0; SAMPLE LIPEMIA CHECK 0; SODIUM 144 MEQ/L (136-147); UREA NITROGEN (BUN) 63 mg/dL (9-23)
[2017-08-17 06:43] LABS: TOTAL BILIRUBIN 0.3 MG/DL (0.0-1.0)
[2017-08-17 07:30] VITALS: BP 124/68
[2017-08-17 11:10] VITALS: BP 126/71
[2017-08-17] MEDS ORDERED: RENVELA800 MG PO (12:49)
[2017-08-17 13:25] LABS: ANTI-HEPATITIS B CORE (TOTAL) Nonreactive; HBCT INDEX 0.07
[2017-08-17 13:26] LABS: AHBS INDEX 0.29; HBSG INDEX 0.18; HEPATITIS B SURFACE ANTIBODY Nonreactive; HPCA INDEX 0.16
[2017-08-17 19:53] VITALS: BP 123/58
== END 2017-08-17 21:18 | disposition home health service (06) | DRG 673 ==
LOC: EME → EDBD 11:45 → EME 11:45 → EDOF 18:30 → 5EAST 18:30 → ENRESERV 19:08 → 5EAST 23:59 → ENPENDDIS 08-17 → 5EAST 08-17 21:18
PROVIDERS: Emergency Medicine; Internal Medicine; Internal Medicine Nephrology
PROC: 02HV33Z Insertion of Infusion Device into Superior Vena Cava, Percutaneous Approach (ICD-10-PCS; principal; 2017-08-16)
PROC: 3E1M39Z Irrigation of Peritoneal Cavity using Dialysate, Percutaneous Approach (ICD-10-PCS; principal; 2017-08-16)
PROC: 0JH63XZ Insertion of Tunneled Vascular Access Device into Chest Subcutaneous Tissue and Fascia, Percutaneous Approach (ICD-10-PCS; principal; 2017-08-16)
PROC: 5A1D70Z Performance of Urinary Filtration, Intermittent, Less than 6 Hours Per Day (ICD-10-PCS; 2017-08-17)
DX: I12.0 Hypertensive chronic kidney disease with stage 5 chronic kidney disease or end stage renal disease (principal); N18.6 End stage renal disease; Z91.15 Patient's noncompliance with renal dialysis; Z99.2 Dependence on renal dialysis; I49.3 Ventricular premature depolarization; I48.0 Paroxysmal atrial fibrillation; I25.10 Atherosclerotic heart disease of native coronary artery without angina pectoris; F17.210 Nicotine dependence, cigarettes, uncomplicated; D64.9 Anemia, unspecified; E11.22 Type 2 diabetes mellitus with diabetic chronic kidney disease; E11.51 Type 2 diabetes mellitus with diabetic peripheral angiopathy without gangrene; E78.5 Hyperlipidemia, unspecified; E87.6 Hypokalemia; G89.29 Other chronic pain; J44.9 Chronic obstructive pulmonary disease, unspecified; D63.1 Anemia in chronic kidney disease; F32.9 Major depressive disorder, single episode, unspecified
CPT/HCPCS: 71010; 80048; 80048 91; 80053; 81003; 83735; 84484; 85025; 85027; 86704; 86706; 86803; 87040; 87070; 87205; 87340; 89051; 93005; 99281; 99284; C1750; C1894; J0690; J0881; J1644; J2250; J3010; J7040; S0020

== ENCOUNTER 2017-08-23 12:05 | Inpatient (IN) | payer OTHER, MEDICARE ==
[~2017-08-23] VITALS: Ht 182.9 cm; Wt 61.6 kg
[~2017-08-23 12:05] MED LIST changes: +COZAAR100 MG PO; +RENVELA800 MG PO; +VIIBRYD10 MG PO
[2017-08-23 13:16] LABS: HEMATOCRIT 35.9 % (38.0-50.0); MCH 31.1 PG (29.0-34.0); MCHC 31.8 G/DL (30.0-36.0); MCV 98.1 FL (86-99); MEAN PLAT.VOLUME 9.3 uM^3 (9.0-12.4); NRBC (%) 0.3 /100 WBC (0-0); PLATELET COUNT 448 K/uL (156-360); RBC DIS.WIDTH-CV 15.7 % (11.8-14.6); RBC DIS.WIDTH-SD 54.1 % (39-53); WHITE BLOOD COUNT 12.5 K/uL (4.1-10.2)
[2017-08-23 13:18] LABS: RED BLOOD COUNT 3.66 M/uL (4.00-5.50)
[2017-08-23 13:23] LABS: CHLORIDE 96 mEq/L (99-109); POTASSIUM 3.6 mEq/L (3.7-5.4); SODIUM 137 mEq/L (136-147)
[2017-08-23 13:25] LABS: GLUCOSE 85 mg/dL (70-99)
[2017-08-23 13:26] LABS: ANION GAP 13 MEQ/L (2-14)
[2017-08-23 13:29] LABS: GFR ESTIMATE (CALCULATED) 13 mL/min/
[2017-08-23 13:34] LABS: UREA NITROGEN (BUN) 17 mg/dL (9-23)
[2017-08-23 13:37] LABS: TROP-I INTERPRETATION NEGATIVE; TROPONIN-I 0.06 ng/mL (0.0-0.30)
[2017-08-23 15:50] LABS: INTER. NORMALIZED RATIO 1.2; PROTHROMBIN TIME 13.5 SEC (10.2-12.9)
[2017-08-23 15:52] LABS: PTT 36.2 SEC (25-37)
[2017-08-23 16:20] LABS: BASE EXCESS 7.4 mEq/L (-3 to +3); BICARBONATE 31.2 mEq/L (22-26); CARBOXY HGB 2.5 % (0-5); COMMENTS - BLOOD GASES A+C+; DEVICE NC; METHEMOGLOBIN 0.8 % (0-1.5); O2 FLOW 3 L/MIN; PCO2 40 mm Hg (35-45); PO2 144 mm Hg (80-100); SITE RR
[2017-08-23 16:21] LABS: TOTAL RESP RATE 16 resp/min
[2017-08-24 00:33] LABS: HEMATOCRIT 33.4 % (38.0-50.0); MCV 99.1 FL (86-99)
[2017-08-24 00:40] LABS: TROP-I INTERPRETATION NEGATIVE; TROPONIN-I 0.07 ng/mL (0.0-0.30)
[2017-08-24 03:40] VITALS: BP 150/93
[2017-08-24 08:01] VITALS: BP 151/65
[2017-08-24 10:38] LABS: BASOPHIL COUNT 0.1 K/uL (0-0.1); EOSINOPHIL (%) 1.6 % (0-5); EOSINOPHIL COUNT 0.2 K/uL (0-0.3); HEMATOCRIT 31.6 % (38.0-50.0); IMMATURE GRANULOCYTE (%) 1.2 % (0.0-0.7); IMMATURE GRANULOCYTE COUNT 0.2 K/uL; LYMPHOCYTE COUNT 2.4 K/uL (1.0-2.8); MCH 30.9 PG (29.0-34.0); MCHC 31.3 G/DL (30.0-36.0); MCV 98.8 FL (86-99); MEAN PLAT.VOLUME 10.4 uM^3 (9.0-12.4); MONOCYTE (%) 8.1 % (3-12); NEUTROPHIL (%) 70.2 % (45-76); PLATELET COUNT 425 K/uL (156-360); RBC DIS.WIDTH-CV 15.7 % (11.8-14.6); RBC DIS.WIDTH-SD 54.5 % (39-53); WHITE BLOOD COUNT 12.8 K/uL (4.1-10.2)
[2017-08-24 11:02] LABS: ANION GAP 11 MEQ/L (2-14); CHLORIDE 97 MEQ/L (99-109); POTASSIUM 3.4 MEQ/L (3.7-5.4); SAMPLE HEMOLYSIS CHECK 0; SAMPLE ICTERIC CHECK 0; SAMPLE LIPEMIA CHECK 0; SODIUM 136 MEQ/L (136-147); TOTAL BILIRUBIN 0.3 MG/DL (0.0-1.0)
[2017-08-24 11:09] LABS: ALKALINE PHOSPHATASE 65 IU/L (3-129)
[2017-08-24 11:10] LABS: GFR ESTIMATE (CALCULATED) 10 mL/min/; GLUCOSE 117 mg/dL (70-99); UREA NITROGEN (BUN) 26 mg/dL (9-23)
[2017-08-24 11:11] LABS: TROP-I INTERPRETATION NEGATIVE; TROPONIN-I 0.07 ng/mL (0.0-0.30)
[2017-08-24 15:55] VITALS: BP 107/62
[2017-08-24 15:57] LABS: HEMATOCRIT 35.6 % (38.0-50.0); MCV 99.2 FL (86-99)
[2017-08-24 19:56] VITALS: BP 87/59
[2017-08-24 21:01] VITALS: BP 102/60
[2017-08-25] VITALS (9 sets, daily range): BP systolic 94–133; BP diastolic 53–70
[2017-08-25 00:42] LABS: HEMATOCRIT 34.2 % (38.0-50.0); MCV 97.4 FL (86-99)
[2017-08-25 06:30] LABS: BASOPHIL COUNT 0.1 K/uL (0-0.1); EOSINOPHIL (%) 1.7 % (0-5); EOSINOPHIL COUNT 0.2 K/uL (0-0.3); HEMATOCRIT 34.6 % (38.0-50.0); IMMATURE GRANULOCYTE (%) 1.9 % (0.0-0.7); IMMATURE GRANULOCYTE COUNT 0.3 K/uL; INSTRUMENT ABS NEUTROPHIL CT 9.6 K/uL; LYMPHOCYTE COUNT 2.8 K/uL (1.0-2.8); MCH 31.1 PG (29.0-34.0); MCHC 31.5 G/DL (30.0-36.0); MCV 98.6 FL (86-99); MEAN PLAT.VOLUME 10.3 uM^3 (9.0-12.4); MONOCYTE (%) 8.2 % (3-12); MONOCYTE COUNT 1.2 K/uL (0-0.8); NEUTROPHIL (%) 67.7 % (45-76); NEUTROPHIL COUNT 9.6 K/uL (1.8-6.4); PLATELET COUNT 420 K/uL (156-360); RBC DIS.WIDTH-CV 15.9 % (11.8-14.6); RBC DIS.WIDTH-SD 56.1 % (39-53); RED BLOOD COUNT 3.51 M/uL (4.00-5.50); WHITE BLOOD COUNT 14.2 K/uL (4.1-10.2)
[2017-08-25 07:03] LABS: ANION GAP 15 MEQ/L (2-14); CHLORIDE 100 MEQ/L (99-109); GFR ESTIMATE (CALCULATED) 14 mL/min/; POTASSIUM 3.8 MEQ/L (3.7-5.4); SAMPLE HEMOLYSIS CHECK 0; SAMPLE ICTERIC CHECK 0; SAMPLE LIPEMIA CHECK 0; SODIUM 142 MEQ/L (136-147); UREA NITROGEN (BUN) 16 mg/dL (9-23)
[2017-08-25 07:04] LABS: GLUCOSE 84 mg/dL (70-99)
[2017-08-25 15:43] LABS: HEMATOCRIT 35.5 % (38.0-50.0)
[2017-08-25 20:54] LABS: TROP-I INTERPRETATION NEGATIVE; TROPONIN-I 0.11 ng/mL (0.0-0.30)
[2017-08-26 04:06] VITALS: BP 99/57
[2017-08-26 05:36] LABS: HEMATOCRIT 34.5 % (38.0-50.0); MCH 31.9 PG (29.0-34.0); MCHC 31.9 G/DL (30.0-36.0); MEAN PLAT.VOLUME 10.4 uM^3 (9.0-12.4); PLATELET COUNT 378 K/uL (156-360); RBC DIS.WIDTH-CV 16.1 % (11.8-14.6); RBC DIS.WIDTH-SD 57.9 % (39-53); RED BLOOD COUNT 3.45 M/uL (4.00-5.50); WHITE BLOOD COUNT 18.2 K/uL (4.1-10.2)
[2017-08-26 06:05] LABS: ALKALINE PHOSPHATASE 74 IU/L (3-129); ANION GAP 15 MEQ/L (2-14); CHLORIDE 96 MEQ/L (99-109); GFR ESTIMATE (CALCULATED) 10 mL/min/; GLUCOSE 87 mg/dL (70-99); POTASSIUM 3.8 MEQ/L (3.7-5.4); SAMPLE HEMOLYSIS CHECK 0; SAMPLE ICTERIC CHECK 0; SAMPLE LIPEMIA CHECK 0; SODIUM 139 MEQ/L (136-147); TOTAL BILIRUBIN 0.5 MG/DL (0.0-1.0); UREA NITROGEN (BUN) 28 mg/dL (9-23)
[2017-08-26 06:44] VITALS: BP 93/52
[2017-08-26 11:12] VITALS: BP 95/56
[2017-08-26 15:00] VITALS: BP 112/57
[2017-08-26 23:57] VITALS: BP 110/64
[2017-08-27 04:00] VITALS: BP 114/65
[2017-08-27 04:23] LABS: C DIFF TOXIN NEGATIVE (NEGATIVE)
[2017-08-27 04:31] LABS: PROBE CHECK PASS; SPECIMEN PROCESSING CONTROL PASS
[2017-08-27 06:40] VITALS: BP 119/53
[2017-08-27 08:11] LABS: BASOPHIL COUNT 0.1 K/uL (0-0.1); EOSINOPHIL (%) 1.4 % (0-5); EOSINOPHIL COUNT 0.3 K/uL (0-0.3); HEMATOCRIT 31.2 % (38.0-50.0); IMMATURE GRANULOCYTE (%) 0.6 % (0.0-0.7); IMMATURE GRANULOCYTE COUNT 0.1 K/uL; INSTRUMENT ABS NEUTROPHIL CT 17.8 K/uL; LYMPHOCYTE COUNT 2.8 K/uL (1.0-2.8); MCH 31.5 PG (29.0-34.0); MCHC 32.1 G/DL (30.0-36.0); MCV 98.4 FL (86-99); MEAN PLAT.VOLUME 10.2 uM^3 (9.0-12.4); MONOCYTE COUNT 1.1 K/uL (0-0.8); NEUTROPHIL COUNT 17.8 K/uL (1.8-6.4); PLATELET COUNT 333 K/uL (156-360); RBC DIS.WIDTH-CV 15.9 % (11.8-14.6); RBC DIS.WIDTH-SD 55.8 % (39-53); RED BLOOD COUNT 3.17 M/uL (4.00-5.50); WHITE BLOOD COUNT 22.2 K/uL (4.1-10.2)
[2017-08-27 08:30] LABS: ALKALINE PHOSPHATASE 61 IU/L (3-129); ANION GAP 14 MEQ/L (2-14); CHLORIDE 99 MEQ/L (99-109); GFR ESTIMATE (CALCULATED) 7 mL/min/; POTASSIUM 3.7 MEQ/L (3.7-5.4); SAMPLE HEMOLYSIS CHECK 0; SAMPLE ICTERIC CHECK 0; SAMPLE LIPEMIA CHECK 0; SODIUM 139 MEQ/L (136-147); TOTAL BILIRUBIN 0.4 MG/DL (0.0-1.0); UREA NITROGEN (BUN) 39 mg/dL (9-23)
[2017-08-27 08:31] LABS: GLUCOSE 118 mg/dL (70-99)
[2017-08-27 11:40] VITALS: BP 116/64
[2017-08-27 14:56] VITALS: BP 110/61
[2017-08-27 23:23] VITALS: BP 117/56
[2017-08-28 06:55] LABS: BASOPHIL COUNT 0.1 K/uL (0-0.1); EOSINOPHIL (%) 2.3 % (0-5); EOSINOPHIL COUNT 0.4 K/uL (0-0.3); HEMATOCRIT 31.8 % (38.0-50.0); IMMATURE GRANULOCYTE (%) 0.6 % (0.0-0.7); IMMATURE GRANULOCYTE COUNT 0.1 K/uL; INSTRUMENT ABS NEUTROPHIL CT 11.7 K/uL; LYMPHOCYTE COUNT 2.3 K/uL (1.0-2.8); MCH 30.8 PG (29.0-34.0); MCHC 31.1 G/DL (30.0-36.0); MCV 99.1 FL (86-99); MEAN PLAT.VOLUME 10.3 uM^3 (9.0-12.4); MONOCYTE (%) 6.4 % (3-12); NEUTROPHIL (%) 75.4 % (45-76); NEUTROPHIL COUNT 11.7 K/uL (1.8-6.4); PLATELET COUNT 295 K/uL (156-360); RBC DIS.WIDTH-CV 15.8 % (11.8-14.6); RBC DIS.WIDTH-SD 56.8 % (39-53); RED BLOOD COUNT 3.21 M/uL (4.00-5.50); WHITE BLOOD COUNT 15.6 K/uL (4.1-10.2)
[2017-08-28 07:30] VITALS: BP 129/69
[2017-08-28 07:30] LABS: ALKALINE PHOSPHATASE 68 IU/L (3-129); ANION GAP 10 MEQ/L (2-14); CHLORIDE 100 MEQ/L (99-109); GLUCOSE 89 mg/dL (70-99); POTASSIUM 3.9 MEQ/L (3.7-5.4); SAMPLE HEMOLYSIS CHECK 0; SAMPLE ICTERIC CHECK 0; SAMPLE LIPEMIA CHECK 0; SODIUM 138 MEQ/L (136-147); UREA NITROGEN (BUN) 21 mg/dL (9-23)
[2017-08-28 07:35] LABS: GFR ESTIMATE (CALCULATED) 11 mL/min/; TOTAL BILIRUBIN 0.5 MG/DL (0.0-1.0)
[2017-08-28 15:51] VITALS: BP 129/69
[2017-08-28 23:31] VITALS: BP 120/67
[2017-08-29 07:27] LABS: HEMATOCRIT 32.1 % (38.0-50.0); MCH 31.9 PG (29.0-34.0); MCHC 32.1 G/DL (30.0-36.0); MCV 99.4 FL (86-99); MEAN PLAT.VOLUME 10.4 uM^3 (9.0-12.4); PLATELET COUNT 275 K/uL (156-360); RBC DIS.WIDTH-CV 15.8 % (11.8-14.6); RBC DIS.WIDTH-SD 56.5 % (39-53); RED BLOOD COUNT 3.23 M/uL (4.00-5.50); WHITE BLOOD COUNT 13.3 K/uL (4.1-10.2)
[2017-08-29 07:43] LABS: ANION GAP 12 MEQ/L (2-14); CHLORIDE 100 MEQ/L (99-109); POTASSIUM 3.8 MEQ/L (3.7-5.4); SAMPLE HEMOLYSIS CHECK 0; SAMPLE ICTERIC CHECK 0; SAMPLE LIPEMIA CHECK 0; SODIUM 137 MEQ/L (136-147)
[2017-08-29 07:57] LABS: GFR ESTIMATE (CALCULATED) 8 mL/min/; GLUCOSE 113 mg/dL (70-99); UREA NITROGEN (BUN) 29 mg/dL (9-23)
[2017-08-29 11:47] VITALS: BP 151/82
[2017-08-29 15:43] VITALS: BP 140/85
[2017-08-29 23:45] VITALS: BP 136/88
[2017-08-30 07:07] LABS: BASOPHIL COUNT 0.1 K/uL (0-0.1); EOSINOPHIL (%) 3.8 % (0-5); EOSINOPHIL COUNT 0.4 K/uL (0-0.3); HEMATOCRIT 35.6 % (38.0-50.0); IMMATURE GRANULOCYTE (%) 0.5 % (0.0-0.7); IMMATURE GRANULOCYTE COUNT 0.1 K/uL; INSTRUMENT ABS NEUTROPHIL CT 7.7 K/uL; LYMPHOCYTE COUNT 2.2 K/uL (1.0-2.8); MCH 30.7 PG (29.0-34.0); MCHC 30.9 G/DL (30.0-36.0); MCV 99.4 FL (86-99); MEAN PLAT.VOLUME 10.6 uM^3 (9.0-12.4); MONOCYTE (%) 8.4 % (3-12); NEUTROPHIL (%) 67.1 % (45-76); NEUTROPHIL COUNT 7.7 K/uL (1.8-6.4); PLATELET COUNT 274 K/uL (156-360); RBC DIS.WIDTH-CV 15.5 % (11.8-14.6); RED BLOOD COUNT 3.58 M/uL (4.00-5.50); WHITE BLOOD COUNT 11.5 K/uL (4.1-10.2)
[2017-08-30 07:55] VITALS: BP 151/72
[2017-08-30] MEDS ORDERED: PROTONIX40 MG PO (14:18)
== END 2017-08-30 16:10 | DRG 356 ==
LOC: EME 12:05 → 5EAST 15:54 → EDOF 15:54 → ENRESERV 15:55 → 5EAST 18:12
PROVIDERS: Internal Medicine; Internal Medicine Nephrology
PROC: 0DB68ZX Excision of Stomach, Via Natural or Artificial Opening Endoscopic, Diagnostic (ICD-10-PCS; principal; 2017-08-24)
PROC: 0WPG03Z Removal of Infusion Device from Peritoneal Cavity, Open Approach (ICD-10-PCS; 2017-08-28)
DX: K25.4 Chronic or unspecified gastric ulcer with hemorrhage (principal); N18.6 End stage renal disease; Z99.2 Dependence on renal dialysis; I12.0 Hypertensive chronic kidney disease with stage 5 chronic kidney disease or end stage renal disease; I48.0 Paroxysmal atrial fibrillation; I25.10 Atherosclerotic heart disease of native coronary artery without angina pectoris; E11.22 Type 2 diabetes mellitus with diabetic chronic kidney disease; E78.5 Hyperlipidemia, unspecified; R64 Cachexia; E87.6 Hypokalemia; F17.210 Nicotine dependence, cigarettes, uncomplicated; F10.10 Alcohol abuse, uncomplicated; Z91.19 Patient's noncompliance with other medical treatment and regimen; T85.611A Breakdown (mechanical) of intraperitoneal dialysis catheter, initial encounter; I71.2 Thoracic aortic aneurysm, without rupture; D63.1 Anemia in chronic kidney disease; E11.52 Type 2 diabetes mellitus with diabetic peripheral angiopathy with gangrene; Z91.81 History of falling
CPT/HCPCS: 36600; 70450; 71010; 71020; 71275; 73630; 80048; 80053; 80069; 81003; 82803; 83605; 84100; 84484; 85014; 85018; 85025; 85025 91; 85027; 85610; 85730; 87040; 87493; 88305; 88342 TC; 93005; 94640; 94640 76; 94799; 97530 GO; 97530 GP; 99202; 99281; 99285; C9113; J0690; J1644

== ENCOUNTER 2017-10-09 08:54 | Day surgery (SDC) | payer OTHER, MEDICARE ==
[~2017-10-09] VITALS: Ht 182.9 cm; Wt 59.0 kg
[~2017-10-09 08:54] MED LIST changes: +AURYXIA PO; +BACITRACIN28.4 GM TP; +PROTONIX40 MG PO; +TYLENOL EXTRA500 MG PO; +[UNRECOGNIZED DRUG - SUPPLY] TP
[2017-10-09 09:29] LABS: HEMATOCRIT 35.9 % (38.0-50.0); HEMOGLOBIN 11.4 G/DL (12.5-16.6); MCH 31.3 PG (29.0-34.0); MCHC 31.8 G/DL (30.0-36.0); MCV 98.6 FL (86-99); PLATELET COUNT 363 K/uL (156-360); RBC DIS.WIDTH-CV 16.4 % (11.8-14.6); RBC DIS.WIDTH-SD 57.8 % (39-53); RED BLOOD COUNT 3.64 M/uL (4.00-5.50); WHITE BLOOD COUNT 10.7 K/uL (4.1-10.2)
[2017-10-09 09:41] LABS: CHLORIDE 96 mEq/L (99-109); POTASSIUM 5.1 mEq/L (3.7-5.4); SODIUM 137 mEq/L (136-147)
[2017-10-09 09:42] LABS: GLUCOSE 97 mg/dL (70-99)
[2017-10-09 09:46] LABS: CREATININE 5.1 mg/dL (0.6-1.3); GFR ESTIMATE (CALCULATED) 12 mL/min/ (58.99-99999)
[2017-10-09 09:47] LABS: UREA NITROGEN (BUN) 26 mg/dL (9-23)
[2017-10-09 10:03] VITALS: BP 203/116
[2017-10-09 10:20] VITALS: BP 180/98
[2017-10-09 16:15] VITALS: BP 198/98
[2017-10-09 17:15] VITALS: BP 192/95
== END 2017-10-09 17:25 | disposition home or self-care (01) ==
LOC: SDC 08:54
PROVIDERS: Surgery
PROC: 03180JD Bypass Left Brachial Artery to Upper Arm Vein with Synthetic Substitute, Open Approach (ICD-10-PCS; principal; 2017-10-09)
DX: I12.0 Hypertensive chronic kidney disease with stage 5 chronic kidney disease or end stage renal disease (principal); E11.22 Type 2 diabetes mellitus with diabetic chronic kidney disease; N18.6 End stage renal disease; Z99.2 Dependence on renal dialysis; Z87.891 Personal history of nicotine dependence; E78.00 Pure hypercholesterolemia, unspecified; J44.9 Chronic obstructive pulmonary disease, unspecified; I44.4 Left anterior fascicular block
CPT/HCPCS: 80048; 85027; 87641; 93005; C1768; J0690; J1644; J2405; J2720

== ENCOUNTER 2017-10-11 12:44 | Day surgery (SDC) | payer OTHER, MEDICARE ==
[~2017-10-11] VITALS: Ht 182.9 cm; Wt 59.0 kg
[2017-10-11 13:17] VITALS: BP 198/97
[2017-10-11 13:18] LABS: HEMATOCRIT 34.2 % (38.0-50.0); HEMOGLOBIN 10.7 G/DL (12.5-16.6); MCH 30.9 PG (29.0-34.0); MCHC 31.3 G/DL (30.0-36.0); MCV 98.8 FL (86-99); PLATELET COUNT 302 K/uL (156-360); RBC DIS.WIDTH-SD 58.7 % (39-53); RED BLOOD COUNT 3.46 M/uL (4.00-5.50); WHITE BLOOD COUNT 9.9 K/uL (4.1-10.2)
[2017-10-11 13:28] LABS: CHLORIDE 96 mEq/L (99-109); POTASSIUM 5.1 mEq/L (3.7-5.4); SODIUM 138 mEq/L (136-147)
[2017-10-11 13:30] LABS: GLUCOSE 92 mg/dL (70-99)
[2017-10-11 13:34] LABS: CREATININE 5.1 mg/dL (0.6-1.3); GFR ESTIMATE (CALCULATED) 12 mL/min/ (58.99-99999)
[2017-10-11 13:35] LABS: UREA NITROGEN (BUN) 26 mg/dL (9-23)
[2017-10-11 18:05] VITALS: BP 188/92
[2017-10-11 18:40] VITALS: BP 198/103
== END 2017-10-11 18:53 | disposition home or self-care (01) ==
LOC: SDC 12:44
PROVIDERS: Surgery
DX: T82.868A Thrombosis due to vascular prosthetic devices, implants and grafts, initial encounter (principal); N18.6 End stage renal disease; Z99.2 Dependence on renal dialysis; Z79.02 Long term (current) use of antithrombotics/antiplatelets
CPT/HCPCS: 80048; 85027; 87641; C1757; C1768; C1894; C2628; J0690; J1644; J2250; J3010

== ENCOUNTER → 2017-11-22 | Outpatient (CLI) | payer OTHER, MEDICARE | END | disposition home or self-care (01) | LOC: AMB 09:30 | PROC: 05PY03Z Removal of Infusion Device from Upper Vein, Open Approach (ICD-10-PCS; principal; 2017-11-22) | DX: N18.6 End stage renal disease (principal); Z99.2 Dependence on renal dialysis ==